=== PATIENT | male | born 1985 | race African-American/Black ===

== ENCOUNTER 2019-04-21 20:41 | Inpatient (IN) | payer OTHER ==
[2019-04-21 21:03] VITALS: BMI 32.1
--- NOTE | 2019-04-21 21:12 | PDOC ---
History of Present Illness - General Chief Complaint: Urinary Problem Stated Complaint: UNABLE TO HAVE URINATION & BM Time Seen by Provider: 04/21/19 21:07 History Source: Patient Exam Limitations: No Limitations - History of Present Illness Initial Comments: Idris Bingham is a 33 yo M w a pmh of epilepsy on keppra who presents to the [facility] er with 1 day of dysuria, frequency, urgency, and hesitancy. The patient states it hurts when he tries to urinate and he feels like he is unable to completely empty his bladder. He also reports constantly feeling like he has an urge to urinate but then when he tries to urinate he is unable to. He feels quite hesitant when trying to urinate. He states he has also not been able to move his bowels for the past 24 hours. He reports that usually he has 2 normal daily bowel movements but has not defecated since yesterday. Patient feels like his bladder is full and that is what is preventing him from having a bowel movement. Patient believes he had a seizure two days ago. PCP: Dr. Rodriguez Neurologist: Dr. Cage PSH: None reported Social Hx: Denies smoking, drinking, or other substance usage Allergies: NKA, NKDA Past History - Past Medical History Allergies/Adverse Reactions: Allergies Allergy/AdvReac Type Severity Reaction Status Date / Time No Known Allergies Allergy Verified 04/21/19 21:03 Home Medications: Ambulatory Orders levETIRAcetam [Keppra -] 500 mg PO BID 04/21/19 - Psycho Social/Smoking Cessation Hx Smoking History: Never smoked Have you smoked in the past 12 months: No Hx Alcohol Use: No Drug/Substance Use Hx: No Review of Systems - Review of Systems Able to Perform ROS?: Yes Comments:: CONSTITUTIONAL: Present: Fever, chills Absent: no fatigue EYES: Absent: visual changes ENT: Absent: ear pain, no sore throat CARDIOVASCULAR: Absent: chest pain, no palpitations RESPIRATORY: Absent: cough, no SOB GI: Present: Abdominal discomfort, constipation Absent: no nausea, no vomiting, no diarrhea GENITOURINARY: Present: dysuria, frequency, hematuria, urgency, hesitancy MUSKULOSKELETAL: Absent: back pain, no arthralgia, no myalgia SKIN: Absent: rash NEURO: Absent: headache *Physical Exam - Vital Signs Last Vital Signs Temp Pulse Resp BP Pulse Ox 100 F H 110 H 18 139/65 98 04/21/19 21:00 04/21/19 21:00 04/21/19 21:04/21/19 21:00 04/21/19 21:00 - Physical Exam Comments: GENERAL: Well-appearing, well-nourished. No apparent distress. HEENT: Normocephalic, atraumatic. PERRL, EOM intact. CARDIOVASCULAR: Tachycardic rate. Normal S1, S2. Regular rhythm. PULMONARY: No evidence of respiratory distress. Lungs clear to auscultation bilaterally. No wheezing, rales or rhonchi. ABDOMEN: Soft, non-distended, non-tender. EXTREMITIES: Normal ROM in all four extremities. No gross deformities. SKIN: Warm, dry. No rash NEUROLOGICAL: No focal neurological deficits. Male Genitalia: positive: normal genitalia, normal prostate, hematuria. negative: discharge, testicular tenderness, testicular mass, epididymus tender, inguinal hernia, hernia, CVAT, other Rectal Exam: positive: normal exam, NL Prostate, normal rectal tone. negative: deferred, melena, decreased tone, heme positive stool, hemorrhoids ED Treatment Course - LABORATORY CBC & Chemistry Diagram: 04/21/19 21:51 04/21/19 21:51 Medical Decision Making - Medical Decision Making Idris Bingham is a 33 yo M w a pmh of epilepsy on [facility] who presents to the [facility] er with 1 day of dysuria, frequency, urgency, and hesitancy. The patient states it hurts when he tries to urinate and he feels like he is unable to completely empty his bladder. He also reports constantly feeling like he has an urge to urinate but then when he tries to urinate he is unable to. He feels quite hesitant when trying to urinate. He states he has also not been able to move his bowels for the past 24 hours. He reports that usually he has 2 normal daily bowel movements but has not defecated since yesterday. Patient feels like his bladder is full and that is what is preventing him from having a bowel movement. Patient believes he had a seizure two days ago. Vital Signs Temp Pulse Resp BP Pulse Ox 100 F H 110 H 18 139/65 98 04/21/19 21:00 04/21/19 21:00 04/21/19 21:00 04/21/19 21:00 04/21/19 21:00 DDx IBNLT: UTI/Pylo, electrolyte/metabolic disturbance, prostatitis, dehydration , GAVIOTA Plan: Labs, Urine, EKG, Bedside bladder + kidney US, IV hydration, rectal temp, anti-pyretic/analgesia, re-assess Labs: Leukocytosis with left shift. Elevated Cr suggestive of GAVIOTA EKG: Sinus tach 101, narrow complexes, normal axis, LVH, no ST elevations or depressions, no abnormal TWI's, no Q waves, QTc 453, [place] 148 Urine: Urine Test Results Urine Color Dk yellow 04/21/19 21:51 Urine Appearance Cloudy 04/21/19 21:51 Urine pH 7.5 (5.0-8.0) 04/21/19 21:51 Ur Specific [place] 1.037 (1.010-1.035) H 04/21/19 21:51 Urine Protein >=1000 (NEGATIVE) 04/21/19 21:51 Urine Glucose (UA) Negative (NEGATIVE) 04/21/19 21:51 Urine Ketones 15 mg/dl (NEGATIVE) 04/21/19 21:51 Urine Blood Moderate (NEGATIVE) 04/21/19 21:51 Urine Nitrite Positive (NEGATIVE) 04/21/19 21:51 Urine Bilirubin Moderate (NEGATIVE) 04/21/19 21:51 Ur Leukocyte Esterase Moderate (NEGATIVE) 04/21/19 21:51 Bedside US: Bladder is normal in appearance and patient is not retaining urine. 35.5 cm3 in bladder. Kidneys appear grossly normal with good blood flow b/l and no hydronephrosis. Re-assessment: Patient is concerned how much it hurts him to urinate. Given that he had a seizure yesterday, has a moderate amount of blood in the urine, has an elevated cr, tachycardic, and borderline febrile we want to admit the patient for IV hydration, Abx, and further observation. Disposition: Admit to med/surg - Signing patient out to Dr. Barlow to complete admission to hospital and give signout to inpatient resident and team Discharge - Discharge Information Problems reviewed: Yes Clinical Impression/Diagnosis: GAVIOTA (acute kidney injury), Seizure, Elevated CK UTI (urinary tract infection) Qualifiers: Urinary tract infection type: acute cystitis Hematuria presence: with hematuria Qualified Code(s): N30.01 - Acute cystitis with hematuria Condition: Fair - Admission Yes - Follow up/Referral Referrals: Faviola Wasserman MD [Primary Care Provider] - - Patient Discharge Instructions - Post Discharge Activity
--- NOTE | 2019-04-21 21:15 | PDOC ---
Attending Attestation - Resident Resident Name: Jonnathan Aguilar - ED Attending Attestation I have performed the following: I have examined & evaluated the patient, The case was reviewed & discussed with the resident, I agree w/resident's findings & plan - HPI HPI: 04/21/19 22:12 Pt comes with tachycardia; he at nothing today due to the fact that he has been unable to move his bowels. He usually gets 2 BMs per day and today he had no BM. He normally eats chicken nuggets and sandwich and banana. No veggies in his diet. Last seizure was yesterday; he has known seizure/epilepsy with 3 seizures per month approx. He is on [address] Cage is his neurologist who check s his levels. 04/21/19 22:16 Denies smoking or drugs. - Physicial Exam PE: 04/21/19 23:49 Pt has a low grade temp. He is warm and tachy in the ER. Abd soft NtND; although for the resident he had siprapubic pain. No flank pain. Lung clear; heart tachy. Ext normal ROM and no edema. - Medical Decision Making 04/21/19 22:09 Pt takes lamictal, keppra, and trilepta. 04/21/19 22:15 Pt's urine is dark; possibly rhabdomyolysis due to seizures. Pt states that he has been trying to lose weight and he has done so recently. 04/21/19 22:24 Pt has a UTI and will be treated with rocephin here. 04/21/19 22:39 04/21/19 22:52 Pt will be admitted for a nitrite positive UTI; rhabdo, dehydration and need to hydrate and treat so that he doesn't suffer a seizure as an outpatient. 04/21/19 23:49 04/22/19 01:37 Pt is admitted; he had a seizure; he was treated with ativan and given a dose of ofirmev. Heart Score/ECG Review - ECG Intrepretation Rhythm: Regular Rhythm - [place]: Normal - P and [place] Prominent R with upright T in V1 (true posterior AR): No Delta Wave(s) Present: No WPW: No - QRS Poor R Wave Progression: No Q Wave Present: No - ST and T Early Repolarization: No Non Specific ST-T Wave changes: No Flattened T Waves: No Prolonged Q-T Interval: No - ECG Impressions Normal ECG: Yes Non-specific ST Elevation: No Ischemic Changes: No Bradycardia: No Tachycardia: Sinus (raet 101; improving with hydration and abx)
[2019-04-21] MEDS ORDERED: SODIUM CHLORIDE 0.9% 500 ML INFUS.BAG IV ONE (21:34)
[2019-04-21 22:02] LABS: BASO % 0.3 % (0-2.0); HEMATOCRIT 41.7 % (35.4-49); HEMOGLOBIN 14.5 GM/dL (11.7-16.9); LYMPH % 6.6 % (8-40); MCH 31.2 pg (25.7-33.7); MCHC 34.7 g/dl (32.0-35.9); MEAN CELL VOLUME 89.8 fl (80-96); MEAN PLT VOLUME 8.1 fl (7.5-11.1); MONO % 8.4 % (3.8-10.2); NEUT % 84.7 % (42.8-82.8); PLATELET COUNT 232 K/MM3 (134-434); RBC 4.64 M/mm3 (4.00-5.60); RDW 12.4 % (11.9-15.9); WHITE BLOOD COUNT 27.6 K/mm3 (4.0-10.0)
[2019-04-21] MEDS ORDERED: ACETAMINOPHEN 325 MG TABLET (FP) PO ONE (22:17)
[2019-04-21 22:19] LABS: EPI CELLS 0.1 /HPF (0-5/HPF); HYALINE CASTS 260 /lpf (0-8); PH,URINE 7.5 (5.0-8.0); URINE APPEARANCE Cloudy; URINE BACTERIA 9.3 /hpf (NEGATIVE); URINE BILIRUBIN Moderate (NEGATIVE); URINE COLOR DK YELLOW; URINE GLUCOSE (UA) Negative (NEGATIVE); URINE KETONE 15 mg/dl (NEGATIVE); URINE LEUK ESTERASE Moderate (NEGATIVE); URINE NITRITE Positive (NEGATIVE); URINE PROTEIN >=1000 (NEGATIVE); URINE WBC 177 /hpf (0-5)
[2019-04-21] MEDS ORDERED: CEFTRIAXONE 1,000 MG in DEXTROSE 5%-WATER - 50 ML IVPB ONE (22:21)
[2019-04-21] MEDS ORDERED: ACETAMINOPHEN 325 MG TABLET (FP) ONE (22:25)
[2019-04-21] MEDS ORDERED: CEFTRIAXONE 1 GM/50 ML BAG ONE (22:26)
[2019-04-21 22:27] LABS: URINE RBC 35-40 /hpf (0-4); YEAST NEGATIVE (NEGATIVE)
[2019-04-21 22:33] LABS: PLATELET ESTIMATE ADEQUATE
[2019-04-21 22:49] LABS: ALBUMIN 4.3 g/dl (3.4-5.0); ALK PHOS 94 U/L (45-117); ANION GAP 8 MMOL/L (8-16); BLOOD UREA NITROGEN 12.7 mg/dL (7-18); CALCIUM 9.6 mg/dL (8.5-10.1); CHLORIDE 100 mmol/L (98-107); CO2 28 mmol/L (21-32); CREATININE 1.5 mg/dL (0.55-1.3); GLUCOSE,RANDOM 87 mg/dL (74-106); POTASSIUM 3.6 mmol/L (3.5-5.1); SGOT/AST 32 U/L (15-37); SGPT/ALT 33 U/L (13-61); SODIUM 136 mmol/L (136-145); TOT PROT 8.5 g/dl (6.4-8.2)
[2019-04-21] MEDS ORDERED: OXcarbazepine 300 MG/5 ML 250 ML BULK BOTTLE PO ONE (23:12)
[2019-04-21] MEDS ORDERED: levETIRAcetam 500 MG TABLET (FP) PO ONE (23:12)
[2019-04-22] MEDS ORDERED: LORazepam 2 MG/ML SDV VIAL ONE (01:30)
[2019-04-22] MEDS ORDERED: ACETAMINOPHEN 1000 MG/100 ML VIAL (NON FORMULARY) IVPB ONE (01:34)
[2019-04-22] MEDS ORDERED: ACETAMINOPHEN INJECTION 100 ML IVPB ONE (01:34)
[2019-04-22] MEDS ORDERED: SODIUM CHLORIDE 0.9% 500 ML INFUS.BAG IV ONE (01:38)
--- NOTE | 2019-04-22 01:47 | PDOC ---
*Physical Exam - Vital Signs Last Vital Signs Temp Pulse Resp BP Pulse Ox 100 F H 110 H 18 139/65 98 04/21/19 21:00 04/21/19 21:00 04/21/19 21:00 04/21/19 21:00 04/21/19 21:00 ED Treatment Course - LABORATORY CBC & Chemistry Diagram: 04/21/19 21:51 04/21/19 21:51 - ADDITIONAL ORDERS Additional order review: Laboratory Results 04/21/19 04/21/19 21:51 21:51 Sodium 136 Potassium 3.6 Chloride 100 Carbon Dioxide 28 Anion Gap 8 BUN 12.7 Creatinine 1.5 H Est GFR (CKD-EPI)AfAm 69.89 Est GFR (CKD-EPI)NonAf 60.30 Random Glucose 87 Calcium 9.6 Total Bilirubin 2.0 H AST 32 ALT 33 Alkaline Phosphatase 94 Creatine Kinase 787 H Creatine Kinase Index No Result Required. CK-MB (CK-2) < 1.0 Total Protein 8.5 H Albumin 4.3 Urine Color Dk yellow Urine Appearance Cloudy Urine pH 7.5 Ur Specific [place] 1.037 H Urine Protein >=1000 Urine Glucose (UA) Negative Urine Ketones 15 mg/dl Urine Blood Moderate Urine Nitrite Positive Urine Bilirubin Moderate Urine Urobilinogen 2.0 Ur Leukocyte Esterase Moderate Urine WBC (Auto) 177 Urine RBC (Auto) 35-40 Urine Casts (Auto) 260 U Pathogenic Cast Auto Negative U Epithel Cells (Auto) 0.1 Urine Bacteria (Auto) 9.3 Urine Yeast (Auto) Negative 04/21/19 21:51 RBC 4.64 MCV 89.8 MCHC 34.7 RDW 12.4 MPV 8.1 Neutrophils % 84.7 H Lymphocytes % 6.6 L Monocytes % 8.4 Eosinophils % 0.0 Basophils % 0.3 - Medications Given in the ED: ED Medications Discontinued Medications Generic Name Dose Route Start Last Admin Trade Name Freq PRN Reason Stop Dose Admin Acetaminophen 975 mg 04/21/19 22:17 04/21/19 22:33 Tylenol - PO 04/21/19 22:18 975 mg ONCE ONE Administration Acetaminophen 1,000 mg 04/22/19 01:34 04/22/19 01:39 Ofirmev Injection - IVPB 04/22/19 01:35 1,000 mg ONCE ONE Administration Ceftriaxone Sodium 1,000 mg/ 50 mls @ 100 mls/hr 04/21/19 22:21 04/21/19 22: 33 Dextrose IVPB 04/21/19 22:50 100 mls/hr ONCE ONE Administration Lamotrigine 200 mg 04/21/19 23:12 04/22/19 01:43 Lamictal - PO 04/21/19 23:13 200 mg ONCE ONE Administration Levetiracetam 500 mg 04/21/19 23:12 04/22/19 01:43 Keppra - PO 04/21/19 23:13 500 mg ONCE ONE Administration Sodium Chloride 1,000 ml 04/21/19 21:34 04/21/19 22:22 Normal Saline - IV 04/21/19 21:35 1,000 ml ONCE ONE Administration Medical Decision Making - Medical Decision Making 04/22/19 01:[address] Aguilar. Patient is a 33 yo male w/ pmh of epilepsy on keppra who presents w/ concerns of dysuria, frequency, urgency, and hesitancy. Patient noted upon workup to have UTI, grossly elevated WBC count, and concern for dehydration w/ elevated CK. Patient admitted for ABX and hydration. Noted to be seizing upon repeat evaluation. Patient seizure stopped w/ 2mg ativan. Patient admitted for further evaluation to hospital team. Discharge - Discharge Information Problems reviewed: Yes Clinical Impression/Diagnosis: GAVIOTA (acute kidney injury), Seizure, Elevated CK UTI (urinary tract infection) Qualifiers: Urinary tract infection type: acute cystitis Hematuria presence: with hematuria Qualified Code(s): N30.01 - Acute cystitis with hematuria Condition: Fair - Admission Yes - Follow up/Referral - Patient Discharge Instructions - Post Discharge Activity
--- NOTE | 2019-04-22 01:57 | PN ---
Teaching Attending Note Name of Resident: Lalo Mosley ATTENDING PHYSICIAN STATEMENT I saw and evaluated the patient. I reviewed the resident's note and discussed the case with the resident. I agree with the resident's findings and plan as documented. SUBJECTIVE: Patient is a 33 year old man with PMH of Epilepsy on Keppra who presents to the ER with 1 day of dysuria, frequency, urgency, and hesitancy. The patient states it hurts when he tries to urinate and he feels like he is unable to completely empty his bladder. He also reports constantly feeling like he has an urge to urinate but then when he tries to urinate he is unable to. He feels quite hesitant when trying to urinate. He states he has also not been able to move his bowels for the past 24 hours. He reports that usually he has 2 normal daily bowel movements but has not defecated since yesterday. Patient feels like his bladder is full and that is what is preventing him from having a bowel movement. Patient believes he had a seizure two days ago and had a witnessed seizure in the ER. Denies smoking, alcohol abuse or illicit drug use. OBJECTIVE: Somnolent but arousable - post ictal Vital Signs Period Temp Pulse Resp BP Sys/Paredes Pulse Ox Last 24 Hr 100 F 110 18 139/65 98 HEENT: No Jaundice, eye redness or discharge, PERRLA, EOMI. Normocephalic, atraumatic. External ears are normal and hearing is grossly intact. No nasal discharge. Neck: Supple, nontender. No palpable adenopathy or thyromegaly. No JVD Chest: Good effort. Clear to auscultation and percussion. Heart: Regular. No S3, rub or murmur Abdomen: Not distended, soft, nontender and no HSM. No rebound or guarding. Normal bowel sounds. Ext: Peripheral pulses intact. No leg edema. Skin: Warm and dry. No petechiae, rash or ecchymosis. Neuro: Alert. Oriented x3. CN 2-12 grossly intact. Sensation grossly intact in all four extremities and DTR are symmetric. Psych: Appropriate mood and affect. Good insight. Home Medications Medication Instructions Recorded levETIRAcetam [Keppra -] 500 mg PO BID 04/21/19 Abnormal Lab Results 04/21/19 04/21/1919 21:51 21:51 21:51 WBC 27.6 H Absolute Neuts (auto) 23.3 H Neutrophils % 84.7 H Lymphocytes % 6.6 L Creatinine 1.5 H Total Bilirubin 2.0 H Creatine Kinase 787 H Total Protein 8.5 H Ur Specific [place] 1.037 H ASSESSMENT AND PLAN: 1. Sepsis due to UTI - Being treated with IV Rocephin and IV fluids. Will send blood culture and lactic acid level. Elevated bilirubin is unexplained - will trend and get RUQ sonogram. EKG shows sinus tachycardia but no ST-T wave changes. 2. Breakthrough seizure - Patient professes compliance with his anti-seizure medications. Will check keppra level and get historical drug levels from his PCP /neurologist and get EEG. Will load with Keppra 1 gm IV. Based on his weight, 500 mg bid may be suboptimal for him. Consult neurology. 3. GAVIOTA - Likely due to rhabdomyolysis which may also explain proteinuria and hematuria (?haptoglobin). Will hydrate with IV NS, trend CKP and consult nephrology. Avoid nephrotoxic agents such as NSAIDS, aminoglycosides, contrast dyes and certain Alternative medicine products. Repeat urinalysis tomorrow. 4. Obesity Counseled on the risks associated with obesity. Will provide patient all the necessary assistance, counseling and positive reinforcement to facilitate weight loss. Consult transition advisor. 5. DVT prophylaxis - Lovenox 40 mg SQ q 24 hours. 6. Advance directives - Full code
--- NOTE | 2019-04-22 02:17 | HP ---
CHIEF COMPLAINT: Dysuria, frequency, increased urge and inability to urinate PCP: Dr. Rodriguez HISTORY OF PRESENT ILLNESS: Pt. is a 33 y.o. M w/ PMHx. of Epilepsy presents to the ED for signs and symptoms of UTI over the last day. Pt. states that the symptoms started suddenly. Pt. states that he has not had a bowel movement in 1 day but that he usually goes twice a day. Pt. endorses dysuria, as well as increased frequency and urge to urinate. Pt. states that he has a seizure earlier today for a total of 4 seizures this month at home. Pt. states that he regularly has around 3 break through seizures a month and lives with muslim friends ( one of which also has seizure disorder) in order to receive help for his break through seizures. Pt. states that his seizure today was unwitnessed and that he was unaware of how long or what happened. Pt. follow Neurologist Dr. Cage and sees him every 3 months( last in January). Pt. denied any recent adjustments to his medications. During H&P pt. had a tonic seizure (5th seizure this month) lasting ~4-5 minutes that was ?broken with Ativan 2mg. Unclear if Pt. was resolving seizure on his own by the time Ativan was given and Pt. was still very confused but a little less rigid. Pt. prior to seizure was saturating in mid-high 90s. Pt. following seizure was saturating to mid-high 80s. ER course was notable for: (1)EKG, UA/UCx, Ceftriaxone (2)Ofirmev, Ativan 2 mg (3) Recent Travel: No PAST MEDICAL HISTORY: Epilepsy PAST SURGICAL HISTORY: Denies Social History: Smoking: Denies Alcohol: Denies Drugs: Denies Allergies No Known Allergies Allergy (Verified 04/21/19 21:03) HOME MEDICATIONS: Home Medications Medication Instructions Recorded levETIRAcetam [Keppra -] 500 mg PO BID 04/21/19 REVIEW OF SYSTEMS CONSTITUTIONAL: diaphoresis Absent: fever, chills, generalized weakness, malaise, loss of appetite, weight change HEENT: Absent: rhinorrhea, nasal congestion, throat pain, throat swelling, difficulty swallowing, mouth swelling, ear pain, eye pain, visual changes CARDIOVASCULAR: Absent: chest pain, syncope, palpitations, irregular heart rate, lightheadedness , peripheral edema RESPIRATORY: Absent: cough, shortness of breath, dyspnea with exertion, orthopnea, wheezing, stridor, hemoptysis GASTROINTESTINAL: Absent: abdominal pain, abdominal distension, nausea, vomiting, diarrhea, constipation, melena, hematochezia GENITOURINARY: dysuria, frequency, urgency, hesitancy Absent: hematuria, flank pain, genital pain MUSCULOSKELETAL: Absent: myalgia, arthralgia, joint swelling, back pain, neck pain SKIN: Absent: rash, itching, pallor HEMATOLOGIC/IMMUNOLOGIC: Absent: easy bleeding, easy bruising, lymphadenopathy, frequent infections ENDOCRINE: Absent: unexplained weight gain, unexplained weight loss, heat intolerance, cold intolerance NEUROLOGIC: Absent: headache, focal weakness or paresthesias, dizziness, unsteady gait, seizure, mental status changes, bladder or bowel incontinence PSYCHIATRIC: Absent: anxiety, depression, suicidal or homicidal ideation, hallucinations. PHYSICAL EXAMINATION Vital Signs - 24 hr 04/21/19 21:00 Temperature 100 F H Pulse Rate 110 H Respiratory 18 Rate Blood Pressure 139/65 O2 Sat by Pulse 98 Oximetry (%) GENERAL: Awake, alert, and fully oriented, in mod distress. HEAD: Normal with no signs of trauma. EYES: Pupils equal, round and reactive to light, extraocular movements intact, sclera anicteric, conjunctiva clear. No lid lag. EARS, NOSE, THROAT: Ears normal, nares patent, oropharynx clear without exudates. Moist mucous membranes. NECK: Normal range of motion, supple without lymphadenopathy, JVD, or masses. LUNGS: Breath sounds equal, clear to auscultation bilaterally. No wheezes, and no crackles. No accessory muscle use. HEART: Regular rate and rhythm, normal S1 and S2 without murmur, rub or gallop. ABDOMEN: Soft, nontender, not distended, normoactive bowel sounds, no guarding, no rebound MUSCULOSKELETAL: No CVA tenderness. UPPER EXTREMITIES: 2+ radial pulses, warm, well-perfused. No cyanosis. No clubbing. No peripheral edema. LOWER EXTREMITIES: 2+ dorsal pedal pulses, warm, well-perfused. No calf tenderness. No peripheral edema. NEUROLOGICAL: Anxious. slightly abnormal thought process, mild cognitive deficits? PSYCHIATRIC: Cooperative. Prolonged eye contact. SKIN: Diaphoretic Laboratory Results - last 24 hr 04/21/19 04/21/19 04/21/19 21:51 21:51 21:51 WBC 27.6 H RBC 4.64 Hgb 14.5 Hct 41.7 MCV 89.8 MCH 31.2 MCHC 34.7 RDW 12.4 Plt Count 232 MPV 8.1 Absolute Neuts (auto) 23.3 H Neutrophils % 84.7 H Neutrophils % (Manual) 82.0 Lymphocytes % 6.6 L Lymphocytes % (Manual) 13.0 Monocytes % 8.4 Monocytes % (Manual) 5 Eosinophils % 0.0 Basophils % 0.3 Nucleated RBC % 0 Platelet Estimate Adequate Sodium 136 Potassium 3.6 Chloride 100 Carbon Dioxide 28 Anion Gap 8 BUN 12.7 Creatinine 1.5 H Est GFR (CKD-EPI)AfAm 69.89 Est GFR (CKD-EPI)NonAf 60.30 Random Glucose 87 Calcium 9.6 Total Bilirubin 2.0 H AST 32 ALT 33 Alkaline Phosphatase 94 Creatine Kinase 787 H Creatine Kinase Index No Result Required. CK-MB (CK-2) < 1.0 Total Protein 8.5 H Albumin 4.3 Urine Color Dk yellow Urine Appearance Cloudy Urine pH 7.5 Ur Specific [place] 1.037 H Urine Protein >=1000 Urine Glucose (UA) Negative Urine Ketones 15 mg/dl Urine Blood Moderate Urine Nitrite Positive Urine Bilirubin Moderate Urine Urobilinogen 2.0 Ur Leukocyte Esterase Moderate Urine WBC (Auto) 177 Urine RBC (Auto) 35-40 Urine Casts (Auto) 260 U Pathogenic Cast Auto Negative U Epithel Cells (Auto) 0.1 Urine Bacteria (Auto) 9.3 Urine Yeast (Auto) Negative ASSESSMENT/PLAN: Pt. is a 33 y.o. M w/ PMHx. of Epilepsy presents for signs and symptoms of UTI over the last day. #UTI UA +: Nitrite +, LE+, WBC-177, Bilirubin, blood, and protein WBC: 26k, Temp: 100, tachycardic Bladder and Renal US: no post void residual, not retaining, no hydronephrosis, kidneys have normal size blood flow. f/u Bcx. ( Pt. received 1 dose ofCeftriaxone prior to BCx.) c/w Ceftriaxone pending speciation and sensitivities f/u Lactic Acid #Seizure disorder f/u anti-epileptic levels c/w AEDs f/u EEG Neuro (Dr. Brothers) consulted [facility] 2 seizures likely precipitated by the UTI EKG: QTc: 453, tachycardia Ativan 2mg PRN #GAVIOTA Cr: 1.5 unknown baseline, f/u Dr. Rodriguez for baseline Dark colored urine Renal US as above #DVT Ppx. Hep SQ TID #FEN no standing IVF, encorage PO intake monitor lytes, replete as needed Na restricted diet Visit type - Emergency Visit Emergency Visit: Yes ED Registration Date: 04/21/19 Care time: The patient presented to the Emergency Department on the above date and was hospitalized for further evaluation of their emergent condition. - New Patient This patient is new to me today: Yes Date on this admission: 04/21/19 - Critical Care Critical Care patient: No ATTENDING PHYSICIAN STATEMENT I saw and evaluated the patient. I reviewed the resident's note and discussed the case with the resident. I agree with the resident's findings and plan as documented. SUBJECTIVE: OBJECTIVE: ASSESSMENT AND PLAN:
[2019-04-22] MEDS ORDERED: levETIRAcetam 500 MG/5 ML INJECTION VIAL IVPB ONE ×2 (04:42→05:25)
--- NOTE | 2019-04-22 10:15 | HOSP ---
Subjective - Review of Symptoms Events since last encounter: Patient is feeling better with no acute distress , no further urgency or frequency. No fever at this time Vital Signs Temperature 99.4 F 04/22/19 06:26 Pulse Rate 104 H 04/22/19 06:26 Respiratory Rate 18 04/22/19 06:26 Blood Pressure 145/93 04/22/19 06:26 O2 Sat by Pulse Oximetry (%) 98 04/22/19 06:26 GENERAL: The patient is awake, alert, and fully oriented, in no acute distress. HEAD: Normal with no signs of trauma. EYES: PERRL, extraocular movements intact, sclera anicteric, conjunctiva clear. ENT: Ears normal, oropharynx clear without exudates, moist mucous membranes. NECK: Trachea midline, full range of motion, supple. LUNGS: Breath sounds equal, clear to auscultation bilaterally, no wheezes, no crackles, no accessory muscle use. HEART: Regular rate and rhythm, S1, S2 without murmur, rub or gallop. ABDOMEN: Soft, nontender, nondistended, normoactive bowel sounds, no guarding, no rebound, no hepatosplenomegaly, no masses. EXTREMITIES: 2+ pulses, warm, well-perfused, no edema. NEUROLOGICAL: Cranial nerves II through XII grossly intact. Normal speech, gait not observed. PSYCH: Normal mood, normal affect. SKIN: Warm, dry, normal turgor, no rashes or lesions noted WBC 27.6 K/mm3 (4.0-10.0) H 04/21/19 21:51 RBC 4.64 M/mm3 (4.00-5.60) 04/21/19 21:51 Hgb 14.5 GM/dL (11.7-16.9) 04/21/19 21:51 Hct 41.7 % (35.4-49) 04/21/19 21:51 MCV 89.8 fl (80-96) 04/21/19 21:51 MCHC 34.7 g/dl (32.0-35.9) 04/21/19 21:51 RDW 12.4 % (11.9-15.9) 04/21/19 21:51 Plt Count 232 K/MM3 (134-434) 04/21/19 21:51 MPV 8.1 fl (7.5-11.1) 04/21/19 21:51 CMP Sodium 136 mmol/L (136-145) 04/21/19 21:51 Potassium 3.6 mmol/L (3.5-5.1) 04/21/19 21:51 Chloride 100 mmol/L (98-107) 04/21/19 21:51 Carbon Dioxide 28 mmol/L (21-32) 04/21/19 21:51 Anion Gap 8 MMOL/L (8-16) 04/21/19 21:51 BUN 12.7 mg/dL (7-18) 04/21/19 21:51 Creatinine 1.5 mg/dL (0.55-1.3) H 04/21/19 21:51 Random Glucose 87 mg/dL (74-106) 04/21/19 21:51 Calcium 9.6 mg/dL (8.5-10.1) 04/21/19 21:51 Total Bilirubin 2.0 mg/dL (0.2-1) H 04/21/19 21:51 AST 32 U/L (15-37) 04/21/19 21:51 ALT 33 U/L (13-61) 04/21/19 21:51 Alkaline Phosphatase 94 U/L (45-117) 04/21/19 21:51 Total Protein 8.5 g/dl (6.4-8.2) H 04/21/19 21:51 Albumin 4.3 g/dl (3.4-5.0) 04/21/19 21:51 CARDIAC ENZYMES Creatine Kinase 787 U/L (26-308) H 04/21/19 21:51 Current Medications Generic Name Dose Route Start Last Admin Trade Name Freq PRN Reason Stop Dose Admin Ceftriaxone Sodium 2 gm/ 50 mls @ 100 mls/hr 04/22/19 10:00 Dextrose IVPB DAILY [facility] Home Medications Medication Instructions Recorded levETIRAcetam [Keppra -] 500 mg PO BID 04/21/19 EKG shows sinus tachycardia but no ST-T wave changes Assessment and plan: Pt. is a 33 y.o. Male w/ PMHx. of Epilepsy presents to the ED for having urgency and frequency and is found to have UTI and and was admitted for having a seizure earlier today for a total of 4 seizures this month at home. #Sepsis due to uti, cX IS PENDING, BLOOD CX PENDING on Rocephin 2gm IV , ID consult, will get GC/chlamydia #s/p Seizure - Consult neurology, Current doses [id number] bid, Lamictal 200mg am and 300 at night, Keppra 1000mg BiD-would resume current dose, discussed with Dr. Brothers # GAVIOTA - monitor, IVF continue # Constipation: on miralax # Obesity weight management DVT prophylaxis - Lovenox 40 mg SQ q 24 hours. Advance directives - Full code Physical Examination Vital Signs: Vital Signs Temperature 99.4 F 04/22/19 06:26 Pulse Rate 104 H 04/22/19 06:26 Respiratory Rate 18 04/22/19 06:26 Blood Pressure 145/93 04/22/19 06:26 O2 Sat by Pulse Oximetry (%) 98 04/22/19 06:26 Labs: CBC, BMP 04/21/19 21:51 04/21/19 21:51
[2019-04-22] MEDS ORDERED: DEXTROSE 5%-WATER - 50 ML IVPB ONE (10:25)
[2019-04-22] MEDS: CEFTRIAXONE 2 GM in DEXTROSE 5%-WATER - 50 ML IVPB SCH (10:27)
[2019-04-22] MEDS ORDERED: SODIUM CHLORIDE 0.9%/KCL 20 MEQ/1,000 ML INFUS.BAG IV SCH (10:30)
[2019-04-22] MEDS: POLYETHYLENE GLYCOL 3350 119 GM BTL PO SCH ×2 (12:47→21:28)
[2019-04-22] MEDS: ACETAMINOPHEN 325 MG TABLET (FP) PO PRN ×2 (14:46→23:37)
--- NOTE | 2019-04-22 15:51 | PN ---
Progress Note (short form) - Note Progress Note: ID CONSULT DICTATED UTI R/O SEPSIS SECONDARY TO UTI LEUKOCYTOSIS SEIZURE DISORDER AWAIT C/S CONTINUE EMPIRIC CEFTRIAXONE
--- NOTE | 2019-04-22 16:34 | CON.NEURO ---
Consult Consult Specialty:: NEUROLOGY-NENA GONZALEZ - History of Present Illness History of Present Illness: HISTORY OF PRESENT ILLNESS: Pt. is a 33 y.o. M w/ PMHx. of Epilepsy presents to the ED for signs and symptoms of UTI over the last day. Pt. states that the symptoms started suddenly. Pt. states that he has not had a bowel movement in 1 day but that he usually goes twice a day. Pt. endorses dysuria, as well as increased frequency and urge to urinate. Pt. states that he has a seizure earlier today for a total of 4 seizures this month at home. Pt. states that he regularly has around 3 break through seizures a month and lives with restorationism friends ( one of which also has seizure disorder) in order to receive help for his break through seizures. Pt. states that his seizure today was unwitnessed and that he was unaware of how long or what happened. Pt. follow Neurologist Dr. Cage and sees him every 3 months( last in January). Pt. denied any recent adjustments to his medications. During H&P pt. had a tonic seizure (5th seizure this month) lasting ~4-5 minutes that was ?broken with Ativan 2mg. Unclear if Pt. was resolving seizure on his own by the time Ativan was given and Pt. was still very confused but a little less rigid. Pt. prior to seizure was saturating in mid-high 90s. Pt. following seizure was saturating to mid-high 80s. Reports he feels well, that he uas 3sz/month, this month 4 than one inhouse. Denies all neurologic complaints. Home Meds- Oxcarb-150mg bid, Lamictal 200mg am and 300 at night, Keppra 1000mg BiD(confirmed by Dr. Doyle). Pt. was given one dose of Keppra iv in the ER , ?? one dose each of other AEDs. - Alcohol/Substance Use Hx Alcohol Use: No - Smoking History Smoking history: Never smoked Have you smoked in the past 12 months: No Home Medications - Allergies Allergies/Adverse Reactions: Allergies Allergy/AdvReac Type Severity Reaction Status Date / Time No Known Allergies Allergy Verified 04/21/19 21:03 - Home Medications Home Medications: Ambulatory Orders levETIRAcetam [Keppra -] 500 mg PO BID 04/21/19 Physical Exam-Neuro Vital Signs: Vital Signs Temperature 101.5 F H 04/22/19 14:00 Pulse Rate 108 H 04/22/19 14:00 Respiratory Rate 18 04/22/19 14:00 Blood Pressure 123/68 04/22/19 14:00 O2 Sat by Pulse Oximetry (%) 98 04/22/19 06:26 Labs: CBC, BMP 04/21/19 21:51 04/21/19 21:51 - Neuro Exam DTR's: 2+ Left Bicep, 2+ Right Bicep, 2+ Left Tricep, 2+ Right Tricep, 2+ Left Brachioradialis, 2+ Right Brachioradialis, 2+ Left Achilles, 2+ Right Achilles Motor Strength: 5/5: Left Arm, Right Arm, Left Leg, Right Leg Gait: Normal Assessment/Plan Pt. with sz. d/o, has been compliant with ,meds, he tells me his epileptologist is in process of titrating meds up. Current doses [id number] bid, Lamictal 200mg am and 300 at night, Keppra 1000mg BiD-would resume all at current doses.
--- NOTE | 2019-04-22 18:24 | CONS ---
DATE OF CONSULTATION: 04/22/2019 HISTORY OF PRESENT ILLNESS: The patient is a 33-year-old male with a history of seizure disorder, evaluated for leukocytosis. The patient was admitted to the hospital on April 21, 2019 with a one-day history of urinary tract complaints. He reported dysuria, urinary frequency and urgency, and acute urinary retention. In addition, he complained of constipation for 24 hours prior to admission. He was evaluated in the emergency room, where he was noted to have a markedly elevated white blood cell count. He was tachycardic. His course was complicated by seizure activity. A urinalysis showed many white cells. A urine culture is pending. He was treated empirically with ceftriaxone. The patient offers no history of urinary tract infections. He denies any associated fever or chills. PAST MEDICAL HISTORY: Positive for seizure disorder. ALLERGIES: No known drug allergies. MEDICATIONS: Tylenol, ceftriaxone, Lamictal, Keppra. SOCIAL HISTORY: He resides in the community. He is a nonsmoker, nondrinker. REVIEW OF SYSTEMS: Neurologic: Positive for seizure disorder. Cardiac: Negative for chest pain or palpitations. Respiratory: Negative for cough or sputum production. Gastrointestinal: Negative for vomiting or diarrhea. Genitourinary: Positive for urinary tract infection. LABORATORY DATA: White count 27.6, 84 neutrophils, 13 lymphocytes, 8 monocytes. Hematocrit 41.7, platelet count 223,000, creatinine 1.5. Urinalysis showed 177 white cells. Blood and urine cultures are pending. PHYSICAL EXAMINATION: General: He is awake and alert. He does not appear to be acutely toxic. Vital Signs: Temperature 99.4. T-max is 101.5. Pulse 104 and regular, blood pressure 145/93, respiratory rate 18 per minute. HEENT: Sclerae anicteric. Heart sounds S1, S2. Lungs: Clear. Abdomen: Soft. No suprapubic or flank tenderness. Extremities: Negative for edema. IMPRESSION: 1. Urinary tract infection; rule out sepsis secondary to urinary tract infection. 2. Leukocytosis. 3. Seizure disorder. PLAN: 1. Await sepsis workup. 2. Continue empiric antibiotic coverage with ceftriaxone pending cultures. 3. Neurology evaluation. 4. Will follow. Thank you for the kind referral. MAYCOL CRAWFORD M.D. [id number]
[2019-04-22] MEDS: levETIRAcetam 500 MG/5 ML ORAL SOLUTION (UNIT-DOSE CUPS) PO SCH (21:26)
[2019-04-22] MEDS: OXcarbazepine 150 MG TABLET (UD) PO SCH (21:28)
[2019-04-22] MEDS ORDERED: ACETAMINOPHEN 325 MG TABLET (FP) PO ONE (23:38)
[2019-04-23 08:12] LABS: BASO % 0.4 % (0-2.0); EOS % 0.8 % (0-4.5); HEMATOCRIT 40.6 % (35.4-49); HEMOGLOBIN 13.6 GM/dL (11.7-16.9); LYMPH % 8.1 % (8-40); MCH 30.2 pg (25.7-33.7); MCHC 33.6 g/dl (32.0-35.9); MEAN CELL VOLUME 89.8 fl (80-96); MEAN PLT VOLUME 8.4 fl (7.5-11.1); MONO % 7.8 % (3.8-10.2); NEUT % 82.9 % (42.8-82.8); PLATELET COUNT 215 K/MM3 (134-434); RBC 4.52 M/mm3 (4.00-5.60); RDW 12.5 % (11.9-15.9); WHITE BLOOD COUNT 16.7 K/mm3 (4.0-10.0)
[2019-04-23 08:42] LABS: ALBUMIN 3.5 g/dl (3.4-5.0); BILIRUBIN,TOTAL 1.2 mg/dL (0.2-1); BLOOD UREA NITROGEN 9.7 mg/dL (7-18); CALCIUM 8.8 mg/dL (8.5-10.1); MAGNESIUM 2.3 mg/dL (1.8-2.4); PHOSPHOROUS 3.1 mg/dL (2.5-4.9); TOT PROT 7.5 g/dl (6.4-8.2)
[2019-04-23] MEDS ORDERED: PT OWN MED DRAWER 7, Y5N ONE ×2 (10:05→21:57)
[2019-04-23] MEDS ORDERED: DEXTROSE 5%-WATER - 50 ML IVPB ONE (10:05)
[2019-04-23] MEDS: CEFTRIAXONE 2 GM in DEXTROSE 5%-WATER - 50 ML IVPB SCH (10:28)
[2019-04-23] MEDS: levETIRAcetam 500 MG/5 ML ORAL SOLUTION (UNIT-DOSE CUPS) PO SCH ×2 (10:28→22:03)
[2019-04-23] MEDS: lamoTRIgine 100 MG TABLET (FP) PO SCH (10:29)
[2019-04-23] MEDS: OXcarbazepine 150 MG TABLET (UD) PO SCH ×2 (10:29→22:05)
[2019-04-23] MEDS: POLYETHYLENE GLYCOL 3350 119 GM BTL PO SCH ×2 (10:29→22:06)
[2019-04-23] MEDS: ACETAMINOPHEN 325 MG TABLET (FP) PO PRN ×2 (10:36→22:03)
[2019-04-23] MEDS ORDERED: WITCH HAZEL 50% (TUCKS) 40 PAD/JAR PAD TP PRN (12:20)
--- NOTE | 2019-04-23 13:31 | PN ---
Progress Note, Physician History of Present Illness: REMAINS FEBRILE DENIES DYSURIA WBC IMPROVED BC (-) URINE C/S NLF - Current Medication List Current Medications: Active Medications Acetaminophen (Tylenol -) 975 mg PO Q6H PRN PRN Reason: FEVER Last Admin: 04/23/19 10:36 Dose: 975 mg Ceftriaxone Sodium 2 gm/ (Dextrose) 50 mls @ 100 mls/hr IVPB DAILY [facility] Last Admin: 04/23/19 10:28 Dose: 100 mls/hr Lamotrigine (Lamictal -) 200 mg PO DAILY [facility] Last Admin: 04/23/19 10:29 Dose: 200 mg Levetiracetam (Keppra Oral Solution -) 1,000 mg PO BID [facility] Last Admin: 04/23/19 10:28 Dose: 1,000 mg Oxcarbazepine (Trileptal -) 150 mg PO BID [facility] Last Admin: 04/23/19 10:29 Dose: 150 mg Polyethylene Glycol (Miralax (For Daily Use) -) 17 gm PO BID [facility] Last Admin: 04/23/19 10:29 Dose: 17 gm Witch Tiffanie/Glycerin (Tucks Pads -) 1 pad TP PRN PRN PRN Reason: PAIN - Objective Vital Signs: Vital Signs Temperature 101.0 F H 04/23/19 10:27 Pulse Rate 110 H 04/23/19 10:27 Respiratory Rate 18 04/23/19 10:27 Blood Pressure 134/78 04/23/19 10:27 O2 Sat by Pulse Oximetry (%) 99 04/22/19 21:00 Constitutional: Yes: No Distress Cardiovascular: Yes: Regular Rate and Rhythm, S1, S2 Respiratory: Yes: CTA Bilaterally Gastrointestinal: Yes: Normal Bowel Sounds, Soft. No: Tenderness Edema: No Labs: CBC, BMP 04/23/19 07:00 04/23/19 07:00 Assessment/Plan UTI FEVER/ LEUKOCYTOSIS R/O SEPSIS AZOTEMIA IMPROVED AWAIT C/S CONTINUE CEFTRIAXONE RENAL SONOGRAM
--- NOTE | 2019-04-23 14:13 | PN ---
Physical Exam: SUBJECTIVE: Patient seen and examined. Fully awake in no apparent distress . Pt had temp of 102.3 responsive to tylenol. no seizures overnight. Pt continues to experience burning on urination as well as urgency OBJECTIVE: Vital Signs Period Temp Pulse Resp BP Sys/Paredes Pulse Ox Last 24 Hr 98.8 F-102.3 F 86-119 16-20 128-136/69-85 99-99 GENERAL: The patient is awake, alert, and fully oriented, in no acute distress. HEAD: Normal with no signs of trauma. EYES: PERRL, extraocular movements intact, sclera anicteric, conjunctiva clear. No ptosis. ENT: oropharynx clear without exudates, moist mucous membranes. LUNGS: Breath sounds equal, clear to auscultation bilaterally, no wheezes, no crackles, no accessory muscle use. HEART: Regular rate and rhythm, S1, S2 without murmur, rub or gallop. ABDOMEN: Soft, nontender, nondistended, normoactive bowel sounds, no guarding, no rebound, no hepatosplenomegaly, no masses. EXTREMITIES: 2+ pulses, warm, well-perfused, no edema. NEUROLOGICAL: Cranial nerves II through XII grossly intact. Normal speech, gait not observed. PSYCH: Normal mood, normal affect. SKIN: Warm, dry, normal turgor, no rashes or lesions noted Laboratory Results - last 24 hr 04/22/19 04/23/19 04/23/19 18:10 07:00 07:00 WBC 16.7 H RBC 4.52 Hgb 13.6 Hct 40.6 MCV 89.8 MCH 30.2 MCHC 33.6 RDW 12.5 Plt Count 215 MPV 8.4 Absolute Neuts (auto) 13.8 H Neutrophils % 82.9 H Lymphocytes % 8.1 D Monocytes % 7.8 Eosinophils % 0.8 D Basophils % 0.4 Nucleated RBC % 0 Sodium 138 Potassium 4.0 Chloride 104 Carbon Dioxide 26 Anion Gap 9 BUN 9.7 Creatinine 1.0 Est GFR (CKD-EPI)AfAm 114.11 Est GFR (CKD-EPI)NonAf 98.45 Random Glucose 73 L Calcium 8.8 Phosphorus 3.1 Magnesium 2.3 Total Bilirubin 1.2 H AST 23 ALT 26 Alkaline Phosphatase 85 Total Protein 7.5 Albumin 3.5 Group A Strep Rapid Negative Active Medications Generic Name Dose Route Start Last Admin Trade Name Freq PRN Reason Stop Dose Admin Acetaminophen 975 mg 04/22/19 14:28 04/23/19 10:36 Tylenol - PO 975 mg Q6H PRN Administration FEVER Ceftriaxone Sodium 2 gm/ 50 mls @ 100 mls/hr 04/22/19 10:00 04/23/19 10:28 Dextrose IVPB 100 mls/hr DAILY [facility] Administration Lamotrigine 200 mg 04/22/19 17:54 04/23/19 10:29 Lamictal - PO 200 mg DAILY [facility]UP[facility] Administration Levetiracetam 1,000 mg 04/22/19 22:00 04/23/19 10:28 Keppra Oral Solution - PO 1,000 mg BID RUPESH Administration Oxcarbazepine 150 mg 04/22/19 22:00 04/23/19 10:29 Trileptal - PO 150 mg BID [facility]UP[facility] Administration Polyethylene Glycol 17 gm 04/22/19 12:00 04/23/19 10:29 Miralax (For Daily Use) - PO 17 gm BID RUPESH Administration Witch Tiffanie/Glycerin 1 pad 04/23/19 12:20 Tucks Pads - TP PRN PRN PAIN ASSESSMENT/PLAN: Pt. is a 33 y.o. M w/ PMHx. of Epilepsy presents for signs and symptoms of UTI over the last day. UTI UA +: Nitrite +, LE+, WBC-177, Bilirubin, blood, and protein WBC trending down 16.7 today Bladder and Renal US: no post void residual, not retaining, no hydronephrosis, kidneys have normal size blood flow. Bcx neg x1d urine culture grew lactose fermenting Gram neg Bacilli pending sensitivity and speciation c/w Ceftriaxone GC/chlamydia sent Seizure disorder Oxcarb-150mg bid, Lamictal 200mg am and 300 at night, Keppra 1000mg BiD f/u anti-epileptic levels f/u EEG Neuro (Dr. Brothers) on board [place] Cr: 1.0 today unknown baseline, f/u Dr. Rodriguez for baseline Dark colored urine Renal US as above Constipation miralax DVT Ppx. Hep SQ TID FEN no standing IVF, encourage PO intake monitor lytes, replete as needed Na restricted diet Visit type - Emergency Visit Emergency Visit: Yes ED Registration Date: 04/21/19 Care time: The patient presented to the Emergency Department on the above date and was hospitalized for further evaluation of their emergent condition. - New Patient This patient is new to me today: Yes Date on this admission: 04/23/19 - Critical Care Critical Care patient: No - Discharge Referral Referred to [facility] Med P.C.: No ATTENDING PHYSICIAN STATEMENT I saw and evaluated the patient. I reviewed the resident's note and discussed the case with the resident. I agree with the resident's findings and plan as documented. SUBJECTIVE: OBJECTIVE: ASSESSMENT AND PLAN:
[2019-04-23] MEDS ORDERED: SODIUM CHLORIDE 1,000 ML IV SCH (14:30)
--- NOTE | 2019-04-23 16:49 | PN ---
Teaching Attending Note Name of Resident: Jazz Camara ATTENDING PHYSICIAN STATEMENT I saw and evaluated the patient. I reviewed the resident's note and discussed the case with the resident. I agree with the resident's findings and plan as documented. SUBJECTIVE: Patient is comfortable with no acute distress. no fever or chills, no seizure activity. OBJECTIVE: Vital Signs Temperature 99.1 F 04/23/19 15:00 Pulse Rate 93 H 04/23/19 15:00 Respiratory Rate 18 04/23/19 15:00 Blood Pressure 130/77 04/23/19 15:00 O2 Sat by Pulse Oximetry (%) 99 04/22/19 21:00 GENERAL: The patient is awake, alert, and fully oriented, in no acute distress. HEAD: Normal with no signs of trauma. EYES: PERRL, extraocular movements intact, sclera anicteric, conjunctiva clear. ENT: Ears normal, oropharynx clear without exudates, moist mucous membranes. NECK: Trachea midline, full range of motion, supple. LUNGS: Breath sounds equal, clear to auscultation bilaterally, no wheezes, no crackles, no accessory muscle use. HEART: Regular rate and rhythm, S1, S2 without murmur, rub or gallop. ABDOMEN: Soft, nontender, nondistended, normoactive bowel sounds, no guarding, no rebound, no hepatosplenomegaly, no masses. EXTREMITIES: 2+ pulses, warm, well-perfused, no edema. NEUROLOGICAL: Cranial nerves II through XII grossly intact. Normal speech, gait not observed. PSYCH: Normal mood, normal affect. SKIN: Warm, dry, normal turgor, no rashes or lesions noted WBC 16.7 K/mm3 (4.0-10.0) H 04/23/19 07:00 RBC 4.52 M/mm3 (4.00-5.60) 04/23/19 07:00 Hgb 13.6 GM/dL (11.7-16.9) 04/23/19 07:00 Hct 40.6 % (35.4-49) 04/23/19 07:00 MCV 89.8 fl (80-96) 04/23/19 07:00 MCHC 33.6 g/dl (32.0-35.9) 04/23/19 07:00 RDW 12.5 % (11.9-15.9) 04/23/19 07:00 Plt Count 215 K/MM3 (134-434) 04/23/19 07:00 MPV 8.4 fl (7.5-11.1) 04/23/19 07:00 CMP Sodium 138 mmol/L (136-145) 04/23/19 07:00 Potassium 4.0 mmol/L (3.5-5.1) 04/23/19 07:00 Chloride 104 mmol/L (98-107) 04/23/19 07:00 Carbon Dioxide 26 mmol/L (21-32) 04/23/19 07:00 Anion Gap 9 MMOL/L (8-16) 04/23/19 07:00 BUN 9.7 mg/dL (7-18) 04/23/19 07:00 Creatinine 1.0 mg/dL (0.55-1.3) 04/23/19 07:00 Random Glucose 73 mg/dL (74-106) L 04/23/19 07:00 Calcium 8.8 mg/dL (8.5-10.1) 04/23/19 07:00 Total Bilirubin 1.2 mg/dL (0.2-1) H 04/23/19 07:00 AST 23 U/L (15-37) 04/23/19 07:00 ALT 26 U/L (13-61) 04/23/19 07:00 Alkaline Phosphatase 85 U/L (45-117) 04/23/19 07:00 Total Protein 7.5 g/dl (6.4-8.2) 04/23/19 07:00 Albumin 3.5 g/dl (3.4-5.0) 04/23/19 07:00 CARDIAC ENZYMES Creatine Kinase 620 U/L (26-308) H 04/22/19 11:18 Current Medications Generic Name Dose Route Start Last Admin Trade Name Freq PRN Reason Stop Dose Admin Acetaminophen 975 mg 04/22/19 14:28 04/23/19 10:36 Tylenol - PO 975 mg Q6H PRN Administration FEVER Ceftriaxone Sodium 2 gm/ 50 mls @ 100 mls/hr 04/22/19 10:00 04/23/19 10:28 Dextrose IVPB 100 mls/hr DAILY [facility]UP[facility] Administration Sodium Chloride 1,000 mls @ 75 mls/hr 04/23/19 14:30 04/23/19 15:05 Normal Saline - IV 04/24/19 03:49 75 mls/hr ASDIR RUPESH Administration Lamotrigine 200 mg 04/22/19 17:54 04/23/19 10:29 Lamictal - PO 200 mg DAILY [facility] Administration Levetiracetam 1,000 mg 04/22/19 22:00 04/23/19 10:28 Keppra Oral Solution - PO 1,000 mg BID RUP[facility] Administration Oxcarbazepine 150 mg 04/22/19 22:00 04/23/19 10:29 Trileptal - PO 150 mg BID RUP[facility] Administration Polyethylene Glycol 17 gm 04/22/19 12:00 04/23/19 10:29 Miralax (For Daily Use) - PO 17 gm BID RUP[facility] Administration Witch Tiffanie/Glycerin 1 pad 04/23/19 12:20 04/23/19 15:09 Tucks Pads - TP 1 pad PRN PRN Administration PAIN Home Medications Medication Instructions Recorded levETIRAcetam [Keppra -] 500 mg PO BID 04/21/19 Microbiology 04/21/19 21:51 Urine - Urine Clean Catch Urine Culture - Preliminary Non Lactose Fermenting Gnb 04/22/19 03:15 Blood - Peripheral Venous Blood Culture - Preliminary NO GROWTH OBTAINED AFTER 24 HOURS, INCUBATION TO CONTINUE FOR 4 DAYS. 04/22/19 03:15 Blood - Peripheral Venous Blood Culture - Preliminary NO GROWTH OBTAINED AFTER 24 HOURS, INCUBATION TO CONTINUE FOR 4 DAYS. EKG shows sinus tachycardia but no ST-T wave changes Assessment and plan: Pt. is a 33 y.o. Male w/ PMHx. of Epilepsy presents to the ED for having urgency and frequency and is found to have UTI and and was admitted for having a seizure earlier today for a total of 4 seizures this month at home. #Sepsis due to uti, Culture and sensitivity IS PENDING, BLOOD CX PENDING on Rocephin 2gm IV , ID consult, will get GC/chlamydia pending #s/p Seizure - Consult neurology, Current doses [id number] bid, Lamictal 200mg am and 300 at night, Keppra 1000mg BiD-would resume current dose, discussed with Dr. Brothers # GAVIOTA - monitor, IVF continue # Constipation: on miralax # Obesity weight management DVT prophylaxis - Lovenox 40 mg SQ q 24 hours. Advance directives - Full code once we get the sensitivity ana discharge the patient.
--- NOTE | 2019-04-23 16:55 | EKG ---
Test Reason : Blood Pressure : / mmHG Vent. Rate : 101 BPM Atrial Rate : 101 BPM P-R Int : 148 ms QRS Dur : 098 ms QT Int : 350 ms P-R-T Axes : 058 017 030 degrees QTc Int : 453 ms SINUS TACHYCARDIA MINIMAL VOLTAGE CRITERIA FOR LVH, MAY BE NORMAL VARIANT BORDERLINE ECG NO PREVIOUS ECGS AVAILABLE Confirmed by JESSI GONZALEZ, KAL ([id number]) on 04/23/2019 4:54:48 PM Referred By: Confirmed By:KAL BOWEN MD
[2019-04-24] MEDS ORDERED: BENZOCAINE 28 GM HEMORRHOIDAL OINTMENT PR PRN (07:12)
[2019-04-24 07:53] LABS: BASO % 0.6 % (0-2.0); EOS % 1.6 % (0-4.5); HEMATOCRIT 36.5 % (35.4-49); MCH 31.1 pg (25.7-33.7); MCHC 35.5 g/dl (32.0-35.9); MEAN CELL VOLUME 87.4 fl (80-96); MEAN PLT VOLUME 8.3 fl (7.5-11.1); MONO % 12.6 % (3.8-10.2); NEUT % 72.2 % (42.8-82.8); PLATELET COUNT 237 K/MM3 (134-434); RBC 4.17 M/mm3 (4.00-5.60); RDW 12.2 % (11.9-15.9); WHITE BLOOD COUNT 5.9 K/mm3 (4.0-10.0)
[2019-04-24] MEDS: ACETAMINOPHEN 325 MG TABLET (FP) PO PRN (08:04)
[2019-04-24 08:07] LABS: BLOOD UREA NITROGEN 11.1 mg/dL (7-18); CALCIUM 8.4 mg/dL (8.5-10.1); POTASSIUM 3.9 mmol/L (3.5-5.1)
[2019-04-24] MEDS ORDERED: DEXTROSE 5%-WATER - 50 ML IVPB ONE (10:42)
[2019-04-24] MEDS ORDERED: PT OWN MED DRAWER 7, Y5N ONE ×3 (10:42→21:25)
[2019-04-24] MEDS: lamoTRIgine 100 MG TABLET (FP) PO SCH ×2 (10:45→21:35)
[2019-04-24] MEDS: levETIRAcetam 500 MG/5 ML ORAL SOLUTION (UNIT-DOSE CUPS) PO SCH ×2 (10:45→21:34)
[2019-04-24] MEDS: POLYETHYLENE GLYCOL 3350 119 GM BTL PO SCH ×2 (10:45→21:37)
[2019-04-24] MEDS: OXcarbazepine 150 MG TABLET (UD) PO SCH ×2 (10:46→21:35)
[2019-04-24] MEDS: CEFTRIAXONE 2 GM in DEXTROSE 5%-WATER - 50 ML IVPB SCH (10:47)
--- NOTE | 2019-04-24 12:02 | PN ---
Progress Note, Physician History of Present Illness: TEMP 103 THIS AM! OFFERS NO COMPLAINTS DENIES DYSURIA OOB IN CHAIR NON TOXIC APPEARING WBC IMPROVED- WNL BC (-) URINE C/S MORGANELLA RENAL SONO (-) - Current Medication List Current Medications: Active Medications Acetaminophen (Tylenol -) 975 mg PO Q6H PRN PRN Reason: FEVER Last Admin: 04/24/19 08:04 Dose: 975 mg Benzocaine (Americaine Ointment -) 1 applic FL PRN PRN PRN Reason: HEMORRHOIDS Ceftriaxone Sodium 2 gm/ (Dextrose) 50 mls @ 100 mls/hr IVPB DAILY [facility] Last Admin: 04/24/19 10:47 Dose: 100 mls/hr Lamotrigine (Lamictal -) 200 mg PO DAILY [facility] Last Admin: 04/24/19 10:45 Dose: 200 mg Levetiracetam (Keppra Oral Solution -) 1,000 mg PO BID [facility] Last Admin: 04/24/19 10:45 Dose: 1,000 mg Oxcarbazepine (Trileptal -) 150 mg PO BID [facility] Last Admin: 04/24/19 10:46 Dose: 150 mg Polyethylene Glycol (Miralax (For Daily Use) -) 17 gm PO BID [facility] Last Admin: 04/24/19 10:45 Dose: Not Given Witch Tiffanie/Glycerin (Tucks Pads -) 1 pad TP PRN PRN PRN Reason: PAIN Last Admin: 04/23/19 15:09 Dose: 1 pad - Objective Vital Signs: Vital Signs Temperature 101.6 F H 04/24/19 05:00 Pulse Rate 92 H 04/24/19 05:00 Respiratory Rate 18 04/24/19 05:00 Blood Pressure 133/76 04/24/19 05:00 O2 Sat by Pulse Oximetry (%) 97 04/23/19 21:00 Constitutional: Yes: No Distress Cardiovascular: Yes: Regular Rate and Rhythm, S1, S2 Respiratory: Yes: CTA Bilaterally Gastrointestinal: Yes: Normal Bowel Sounds, Soft. No: Tenderness Labs: CBC, BMP 04/24/19 06:35 04/24/19 06:00 Assessment/Plan RECURRENT FEVER UTI REPEAT BC SUBSTITUTE LEVAQUIN 750MG QD
--- NOTE | 2019-04-24 16:21 | PN ---
Physical Exam: SUBJECTIVE: Patient seen and examined. Pt had a couple of fever spikes 100.7F, 101.6F responsive to tylenol. pt endorsed some burning on urination but not as much as yesterday OBJECTIVE: Vital Signs Period Temp Pulse Resp BP Sys/Paredes Pulse Ox Last 24 Hr 98.1 F-101.6 F 80-104 18-20 99-143/52-93 97 GENERAL: The patient is awake, alert, and fully oriented, in no acute distress. HEAD: Normal with no signs of trauma. EYES: PERRL, extraocular movements intact, sclera anicteric, conjunctiva clear. No ptosis. ENT: oropharynx clear without exudates, moist mucous membranes. LUNGS: Breath sounds equal, clear to auscultation bilaterally, no wheezes, no crackles, no accessory muscle use. HEART: Regular rate and rhythm, S1, S2 without murmur, rub or gallop. ABDOMEN: Soft, nontender, nondistended, normoactive bowel sounds, no guarding, no rebound, no hepatosplenomegaly, no masses. EXTREMITIES: 2+ pulses, warm, well-perfused, no edema. NEUROLOGICAL: Cranial nerves II through XII grossly intact. Normal speech, gait not observed. PSYCH: Normal mood, normal affect. SKIN: Warm, dry, normal turgor, no rashes or lesions noted Laboratory Results - last 24 hr 04/22/19 04/24/19 04/24/19 03:15 06:00 06:35 WBC 5.9 RBC 4.17 Hgb 13.0 Hct 36.5 MCV 87.4 MCH 31.1 MCHC 35.5 RDW 12.2 Plt Count 237 MPV 8.3 Absolute Neuts (auto) 4.3 Neutrophils % 72.2 Lymphocytes % 13.0 D Monocytes % 12.6 H Eosinophils % 1.6 D Basophils % 0.6 Nucleated RBC % 0 Sodium 138 Potassium 3.9 Chloride 105 Carbon Dioxide 24 Anion Gap 9 BUN 11.1 Creatinine 1.0 Est GFR (CKD-EPI)AfAm 114.11 Est GFR (CKD-EPI)NonAf 98.45 Random Glucose 83 Calcium 8.4 L Oxcarbazepine 2 L Levetiracetam 11.6 Active Medications Generic Name Dose Route Start Last Admin Trade Name Freq PRN Reason Stop Dose Admin Acetaminophen 975 mg 04/22/19 14:28 04/24/19 08:04 Tylenol - PO 975 mg Q6H PRN Administration FEVER Benzocaine 1 applic 04/24/19 07:12 Americaine Ointment - SC PRN PRN HEMORRHOIDS Levofloxacin 750 mg in 150 mls @ 150 mls/hr 04/24/19 12:15 04/24/19 15:39 Levaquin 750 Mg Premixed Ivpb - IVPB 150 mls/hr DAILY RUPESH Administration Protocol Lamotrigine 200 mg 04/22/19 17:54 04/24/19 10:45 Lamictal - PO 200 mg DAILY RUPESH Administration Lamotrigine 300 mg 04/24/19 22:00 Lamictal - PO HS RUPESH Levetiracetam 1,000 mg 04/22/19 22:00 04/24/19 10:45 Keppra Oral Solution - PO 1,000 mg BID RUPESH Administration Oxcarbazepine 150 mg 04/22/19 22:00 04/24/19 10:46 Trileptal - PO 150 mg BID RUPESH Administration Polyethylene Glycol 17 gm 04/22/19 12:00 04/24/19 10:45 Miralax (For Daily Use) - PO Not Given BID RUPESH ASSESSMENT/PLAN: Pt. is a 33 y.o. M w/ PMHx. of Epilepsy presents for signs and symptoms of UTI over the last day. UTI Pt had 2 fever spikes WBC trending down 5.6 today Bcx neg x2d but repeat cultures sent due to fevers urine culture grew morganella morganii sensitive to levaquin Per ID patient switched to levaquin 750mg Seizure disorder Oxcarb-150mg bid, Lamictal 200mg am and 300 at night, Keppra 1000mg BiD anti-epileptic levels for oxcarb 2.0, keppra 11.6. lamictal pending f/u EEG Neuro (Dr. Brothers) on board GAVIOTA Cr: 1.0 today monitor Constipation miralax hemorrhoid cream DVT Ppx. Hep SQ TID FEN no standing IVF, encourage PO intake monitor lytes, replete as needed Na restricted diet Visit type - Emergency Visit Emergency Visit: Yes ED Registration Date: 04/21/19 Care time: The patient presented to the Emergency Department on the above date and was hospitalized for further evaluation of their emergent condition. - New Patient This patient is new to me today: No - Critical Care Critical Care patient: No - Discharge Referral Referred to [facility] Med P.C.: No ATTENDING PHYSICIAN STATEMENT I saw and evaluated the patient. I reviewed the resident's note and discussed the case with the resident. I agree with the resident's findings and plan as documented. SUBJECTIVE: OBJECTIVE: ASSESSMENT AND PLAN:
--- NOTE | 2019-04-24 16:51 | PN ---
Teaching Attending Note Name of Resident: Jazz Camara ATTENDING PHYSICIAN STATEMENT I saw and evaluated the patient. I reviewed the resident's note and discussed the case with the resident. I agree with the resident's findings and plan as documented. SUBJECTIVE: Patient is comfortable , had fever overnight 101.3 ,no further seizure OBJECTIVE: Vital Signs Temperature 98.1 F 04/24/19 15:00 Pulse Rate 95 H 04/24/19 15:00 Respiratory Rate 20 04/24/19 15:00 Blood Pressure 116/72 04/24/19 15:00 O2 Sat by Pulse Oximetry (%) 97 04/23/19 21:00 GENERAL: The patient is awake, alert, and fully oriented, in no acute distress. HEAD: Normal with no signs of trauma. EYES: PERRL, extraocular movements intact, sclera anicteric, conjunctiva clear. ENT: Ears normal, oropharynx clear without exudates, moist mucous membranes. NECK: Trachea midline, full range of motion, supple. LUNGS: Breath sounds equal, clear to auscultation bilaterally, no wheezes, no crackles, no accessory muscle use. HEART: Regular rate and rhythm, S1, S2 without murmur, rub or gallop. ABDOMEN: Soft, nontender, nondistended, normoactive bowel sounds, no guarding, no rebound, no hepatosplenomegaly, no masses. EXTREMITIES: 2+ pulses, warm, well-perfused, no edema. NEUROLOGICAL: Cranial nerves II through XII grossly intact. Normal speech, gait not observed. PSYCH: Normal mood, normal affect. SKIN: Warm, dry, normal turgor, no rashes or lesions noted CBCD WBC 5.9 K/mm3 (4.0-10.0) 04/24/19 06:35 RBC 4.17 M/mm3 (4.00-5.60) 04/24/19 06:35 Hgb 13.0 GM/dL (11.7-16.9) 04/24/19 06:35 Hct 36.5 % (35.4-49) 04/24/19 06:35 MCV 87.4 fl (80-96) 04/24/19 06:35 MCHC 35.5 g/dl (32.0-35.9) 04/24/19 06:35 RDW 12.2 % (11.9-15.9) 04/24/19 06:35 Plt Count 237 K/MM3 (134-434) 04/24/19 06:35 MPV 8.3 fl (7.5-11.1) 04/24/19 06:35 CMP Sodium 138 mmol/L (136-145) 04/24/19 06:00 Potassium 3.9 mmol/L (3.5-5.1) 04/24/19 06:00 Chloride 105 mmol/L (98-107) 04/24/19 06:00 Carbon Dioxide 24 mmol/L (21-32) 04/24/19 06:00 Anion Gap 9 MMOL/L (8-16) 04/24/19 06:00 BUN 11.1 mg/dL (7-18) 04/24/19 06:00 Creatinine 1.0 mg/dL (0.55-1.3) 04/24/19 06:00 Random Glucose 83 mg/dL (74-106) 04/24/19 06:00 Calcium 8.4 mg/dL (8.5-10.1) L 04/24/19 06:00 Total Bilirubin 1.2 mg/dL (0.2-1) H 04/23/19 07:00 AST 23 U/L (15-37) 04/23/19 07:00 ALT 26 U/L (13-61) 04/23/19 07:00 Alkaline Phosphatase 85 U/L (45-117) 04/23/19 07:00 Total Protein 7.5 g/dl (6.4-8.2) 04/23/19 07:00 Albumin 3.5 g/dl (3.4-5.0) 04/23/19 07:00 CARDIAC ENZYMES Creatine Kinase 620 U/L (26-308) H 04/22/19 11:18 Current Medications Generic Name Dose Route Start Last Admin Trade Name Freq PRN Reason Stop Dose Admin Acetaminophen 975 mg 04/22/19 14:28 04/24/19 08:04 Tylenol - PO 975 mg Q6H PRN Administration FEVER Benzocaine 1 applic 04/24/19 07:12 Americaine Ointment - MA PRN PRN HEMORRHOIDS Levofloxacin 750 mg in 150 mls @ 150 mls/hr 04/24/19 12:15 04/24/19 15:39 Levaquin 750 Mg Premixed Ivpb - IVPB 150 mls/hr DAILY RUPESH Administration Protocol Lamotrigine 200 mg 04/22/19 17:54 04/24/19 10:45 Lamictal - PO 200 mg DAILY RUPESH Administration Lamotrigine 300 mg 04/24/19 22:00 Lamictal - PO HS [facility] Levetiracetam 1,000 mg 04/22/19 22:00 04/24/19 10:45 Keppra Oral Solution - PO 1,000 mg BID RUPESH Administration Oxcarbazepine 150 mg 04/22/19 22:00 04/24/19 10:46 Trileptal - PO 150 mg BID [facility] Administration Polyethylene Glycol 17 gm 04/22/19 12:00 04/24/19 10:45 Miralax (For Daily Use) - PO Not Given BID [facility] Home Medications Medication Instructions Recorded levETIRAcetam [Keppra -] 1,000 mg PO BID 04/21/19 Lamotrigine 200 mg PO AM 04/24/19 Lamotrigine 300 mg PO HS 04/24/19 Oxcarbazepine [Trileptal] 150 mg PO BID 04/24/19 Microbiology 04/22/19 21:54 Throat Throat Culture - Preliminary Staphylococcus Latex Coag Pos 04/21/19 21:51 Urine - Urine Clean Catch Urine Culture - Final Morganella Morganii 04/22/19 03:15 Blood - Peripheral Venous Blood Culture - Preliminary NO GROWTH OBTAINED AFTER 48 HOURS, INCUBATION TO CONTINUE FOR 3 DAYS. 04/22/19 03:15 Blood - Peripheral Venous Blood Culture - Preliminary NO GROWTH OBTAINED AFTER 48 HOURS, INCUBATION TO CONTINUE FOR 3 DAYS. EKG shows sinus tachycardia but no ST-T wave changes Assessment and plan: Pt. is a 33 y.o. Male w/ PMHx. of Epilepsy presents to the ED for having urgency and frequency and is found to have UTI and and was admitted for having a seizure earlier today for a total of 4 seizures this month at home. #s/p Sepsis due to uti, Culture and sensitivity as above sensitive to rocephin , since patient had fever overnight , need to monitor for 24h for afebrile state on Rocephin 2gm IV continue , ID consult, will get GC/chlamydia pending #s/p Seizure - Consult neurology, Current doses [id number] bid, Lamictal 200mg am and 300 at night, Keppra 1000mg BiD-would resume current dose, discussed with Dr. Brothers # GAVIOTA - monitor, IVF continue # Constipation: on miralax # Obesity weight management DVT prophylaxis - Lovenox 40 mg SQ q 24 hours. Advance directives - Full code once patient is afebrile, can be discharged on oral antibiotics , please check with ID . follow th gc/chlamydia cx
[2019-04-25 06:42] LABS: BASO % 0.5 % (0-2.0); EOS % 1.9 % (0-4.5); HEMATOCRIT 38.4 % (35.4-49); HEMOGLOBIN 13.4 GM/dL (11.7-16.9); LYMPH % 24.5 % (8-40); MCH 30.6 pg (25.7-33.7); MCHC 34.9 g/dl (32.0-35.9); MEAN CELL VOLUME 87.7 fl (80-96); MEAN PLT VOLUME 7.6 fl (7.5-11.1); MONO % 21.1 % (3.8-10.2); PLATELET COUNT 261 K/MM3 (134-434); RBC 4.37 M/mm3 (4.00-5.60); RDW 12.3 % (11.9-15.9); WHITE BLOOD COUNT 5.8 K/mm3 (4.0-10.0)
[2019-04-25] MEDS ORDERED: PT OWN MED DRAWER 7, Y5N ONE ×2 (10:07→21:51)
[2019-04-25] MEDS: lamoTRIgine 100 MG TABLET (FP) PO SCH ×2 (10:09→21:56)
[2019-04-25] MEDS: levETIRAcetam 500 MG/5 ML ORAL SOLUTION (UNIT-DOSE CUPS) PO SCH ×2 (10:09→21:56)
[2019-04-25] MEDS: POLYETHYLENE GLYCOL 3350 119 GM BTL PO SCH ×2 (10:10→21:55)
[2019-04-25] MEDS: OXcarbazepine 150 MG TABLET (UD) PO SCH ×2 (10:10→21:56)
[2019-04-25 10:53] LABS: ANISOCYTOSIS 0; MACROCYTOSIS 0; PLATELET ESTIMATE NORMAL
--- NOTE | 2019-04-25 12:37 | PN ---
Teaching Attending Note Name of Resident: Jazz Camara ATTENDING PHYSICIAN STATEMENT I saw and evaluated the patient. I reviewed the resident's note and discussed the case with the resident. I agree with the resident's findings and plan as documented. SUBJECTIVE: no fever or chills. No NORTON . no events over night . no abd pain or dysuria OBJECTIVE: NAD , awake , and alert Cv : RRR, no mRG Lungs: CTAB Ext : no edema or erythema Abd: soft, NT, ND, NL BS ASSESSMENT AND PLAN: 33 y/o man with h/o epilepsy who presented with seizures and was found to have UTI 1- Sepsis due to complicated UTI: sepsis resolved, and sx improved - cont levaquin. no seizures since yesterday while on it. will d/w ID - No fever since yesterday am. blood cx repeated yesterday, negative to date - urine cx reviewed - refer to uro as out pt 2- Seizure disorder: no recurrent episodes. episodes on day of admission could be due to the sepsis - oxcarbazepine level is low. patient reports compliance with meds - will ask neuro if any changes in meds ( oxcarbazepine ) should be made - cont keppra, , lamictal, and oxcarbazepine for now 3- DVT px: add heparin sq
--- NOTE | 2019-04-25 13:51 | PN ---
Physical Exam: SUBJECTIVE: Patient seen and examined. No fever spikes, dysuria or urgency overnight. OBJECTIVE: Vital Signs Period Temp Pulse Resp BP Sys/Paredes Pulse Ox Last 24 Hr 98.1 F-99.5 F 80-95 18-20 104-134/66-84 97 GENERAL: The patient is awake, alert, and fully oriented, in no acute distress. HEAD: Normal with no signs of trauma. EYES: PERRL, extraocular movements intact, sclera anicteric, conjunctiva clear. No ptosis. ENT: oropharynx clear without exudates, moist mucous membranes. LUNGS: Breath sounds equal, clear to auscultation bilaterally, no wheezes, no crackles, no accessory muscle use. HEART: Regular rate and rhythm, S1, S2 without murmur, rub or gallop. ABDOMEN: Soft, nontender, nondistended, normoactive bowel sounds, no guarding, no rebound, no hepatosplenomegaly, no masses. EXTREMITIES: 2+ pulses, warm, well-perfused, no edema. PSYCH: Normal mood, normal affect. SKIN: Warm, dry, normal turgor, no rashes or lesions noted Laboratory Results - last 24 hr 04/25/19 04/25/19 05:30 05:35 WBC 5.8 RBC 4.37 Hgb 13.4 Hct 38.4 MCV 87.7 MCH 30.6 MCHC 34.9 RDW 12.3 Plt Count 261 MPV 7.6 Absolute Neuts (auto) 3.0 Neutrophils % 52.0 D Neutrophils % (Manual) 62.3 D Band Neutrophils % 0.0 Lymphocytes % 24.5 D Lymphocytes % (Manual) 15.3 Monocytes % 21.1 H Monocytes % (Manual) 17 H D Eosinophils % 1.9 Eosinophils % (Manual) 1.0 Basophils % 0.5 Basophils % (Manual) 0.0 Myelocytes % (Man) 1 Promyelocytes % (Man) 0 Blast Cells % (Manual) 0 Nucleated RBC % 0 Metamyelocytes 1 Hypochromia 0 Platelet Estimate Normal Polychromasia 0 Poikilocytosis 0 Anisocytosis 0 Microcytosis 0 Macrocytosis 0 Total Bilirubin 0.4 Active Medications Generic Name Dose Route Start Last Admin Trade Name Freq PRN Reason Stop Dose Admin Acetaminophen 975 mg 04/22/19 14:28 04/24/19 08:04 Tylenol - PO 975 mg Q6H PRN Administration FEVER Benzocaine 1 applic 04/24/19 07:12 Americaine Ointment - DE PRN PRN HEMORRHOIDS Heparin Sodium (Porcine) 5,000 unit 04/25/19 14:00 Heparin - SQ TID RUPESH Levofloxacin 750 mg in 150 mls @ 150 mls/hr 04/24/19 12:15 04/25/19 10:09 Levaquin 750 Mg Premixed Ivpb - IVPB 150 mls/hr DAILY RUPESH Administration Protocol Lamotrigine 200 mg 04/22/19 17:54 04/25/19 10:09 Lamictal - PO 200 mg DAILY RUPESH Administration Lamotrigine 300 mg 04/24/19 22:00 04/24/19 21:35 Lamictal - PO 300 mg HS RUPESH Administration Levetiracetam 1,000 mg 04/22/19 22:00 04/25/19 10:09 Keppra Oral Solution - PO 1,000 mg BID RUPESH Administration Oxcarbazepine 150 mg 04/22/19 22:00 04/25/19 10:10 Trileptal - PO 150 mg BID RUPESH Administration Polyethylene Glycol 17 gm 04/22/19 12:00 04/25/19 10:10 Miralax (For Daily Use) - PO Not Given BID [facility] ASSESSMENT/PLAN: Pt. is a 33 y.o. M w/ PMHx. of Epilepsy presents for signs and symptoms of UTI over the last day. UTI Pt afebrile WBC normal 5.8 repeat cultures due to fever spikes pending urine culture grew morganella morganii sensitive to levaquin Per ID patient switched to levaquin 750mg If spikes a fever again, will get renal U/S Uro o/p follow up referral on D/C Seizure disorder Oxcarb-150mg bid, Lamictal 200mg am and 300 at night, Keppra 1000mg BiD anti-epileptic levels for oxcarb 2.0, keppra 11.6. lamictal pending f/u EEG as outpatient Messaged Dr Brothers about Oxcarb levels. increase the dose ? GAVIOTA stable monitor Constipation miralax hemorrhoid cream DVT Ppx. Hep SQ TID FEN no standing IVF, encourage PO intake monitor lytes, replete as needed Na restricted diet Visit type - Emergency Visit Emergency Visit: Yes ED Registration Date: 04/21/19 Care time: The patient presented to the Emergency Department on the above date and was hospitalized for further evaluation of their emergent condition. - New Patient This patient is new to me today: No - Critical Care Critical Care patient: No - Discharge Referral Referred to [facility] Med P.C.: No ATTENDING PHYSICIAN STATEMENT I saw and evaluated the patient. I reviewed the resident's note and discussed the case with the resident. I agree with the resident's findings and plan as documented. SUBJECTIVE: OBJECTIVE: ASSESSMENT AND PLAN:
[2019-04-25] MEDS: HEPARIN NA (PORCINE) 5,000 UNITS/ML 1ML VIAL SQ SCH ×2 (15:03→21:55)
--- NOTE | 2019-04-25 20:41 | PN ---
Progress Note, Physician History of Present Illness: AWAKE, ALERT, AMBULATORY OFFERS NO COMPLAINTS TEMPS DOWN DENIES DYSURIA NON TOXIC APPEARING WBC IMPROVED- WNL BC (-) URINE C/S MORGANELLA RENAL SONO (-) - Current Medication List Current Medications: Active Medications Acetaminophen (Tylenol -) 975 mg PO Q6H PRN PRN Reason: FEVER Last Admin: 04/24/19 08:04 Dose: 975 mg Benzocaine (Americaine Ointment -) 1 applic ND PRN PRN PRN Reason: HEMORRHOIDS Heparin Sodium (Porcine) (Heparin -) 5,000 unit SQ TID [facility] Last Admin: 04/25/19 15:03 Dose: 5,000 unit Levofloxacin (Levaquin 750 Mg Premixed Ivpb -) 750 mg in 150 mls @ 150 mls/hr IVPB DAILY [facility]; Protocol Last Admin: 04/25/19 10:09 Dose: 150 mls/hr Lamotrigine (Lamictal -) 200 mg PO DAILY [facility] Last Admin: 04/25/19 10:09 Dose: 200 mg Lamotrigine (Lamictal -) 300 mg PO HS [facility] Last Admin: 04/24/19 21:35 Dose: 300 mg Levetiracetam (Keppra Oral Solution -) 1,000 mg PO BID [facility] Last Admin: 04/25/19 10:09 Dose: 1,000 mg Oxcarbazepine (Trileptal -) 150 mg PO BID [facility] Last Admin: 04/25/19 10:10 Dose: 150 mg Polyethylene Glycol (Miralax (For Daily Use) -) 17 gm PO BID [facility] Last Admin: 04/25/19 10:10 Dose: Not Given - Objective Vital Signs: Vital Signs Temperature 98.5 F 04/25/19 16:25 Pulse Rate 78 04/25/19 16:25 Respiratory Rate 20 04/25/19 16:25 Blood Pressure 138/98 04/25/19 16:25 O2 Sat by Pulse Oximetry (%) 97 04/24/19 21:00 Constitutional: Yes: No Distress Eyes: Yes: Conjunctiva Clear Cardiovascular: Yes: Regular Rate and Rhythm, S1, S2 Respiratory: Yes: CTA Bilaterally Gastrointestinal: Yes: Normal Bowel Sounds, Soft Edema: No Labs: CBC, BMP 04/25/19 05:30 04/24/19 06:00 Assessment/Plan FEVER- IMPROVED UTI CONTINUE LEVAQUIN 750MG QD
[2019-04-25] MEDS ORDERED: ACETAMINOPHEN 325 MG TABLET (FP) PO ONE (21:19)
[2019-04-26] MEDS ORDERED: SODIUM CHLORIDE NASAL SPRAY 44 ML BOTTLE NS PRN (02:08)
[2019-04-26] MEDS ORDERED: PT OWN MED DRAWER 7, Y5N ONE ×2 (02:48→09:27)
[2019-04-26] MEDS: HEPARIN NA (PORCINE) 5,000 UNITS/ML 1ML VIAL SQ SCH ×2 (06:02→13:53)
[2019-04-26 06:50] LABS: BASO % 0.5 % (0-2.0); EOS % 4.1 % (0-4.5); HEMATOCRIT 38.4 % (35.4-49); HEMOGLOBIN 13.5 GM/dL (11.7-16.9); LYMPH % 20.1 % (8-40); MCH 30.7 pg (25.7-33.7); MEAN CELL VOLUME 87.5 fl (80-96); MEAN PLT VOLUME 7.4 fl (7.5-11.1); MONO % 16.1 % (3.8-10.2); NEUT % 59.2 % (42.8-82.8); PLATELET COUNT 262 K/MM3 (134-434); RBC 4.39 M/mm3 (4.00-5.60); RDW 12.3 % (11.9-15.9); WHITE BLOOD COUNT 7.5 K/mm3 (4.0-10.0)
[2019-04-26 09:36] VITALS: TEMP 98.4
[2019-04-26] MEDS: levETIRAcetam 500 MG/5 ML ORAL SOLUTION (UNIT-DOSE CUPS) PO SCH (09:43)
[2019-04-26] MEDS: OXcarbazepine 150 MG TABLET (UD) PO SCH (09:43)
[2019-04-26] MEDS: lamoTRIgine 100 MG TABLET (FP) PO SCH (09:43)
[2019-04-26] MEDS: POLYETHYLENE GLYCOL 3350 119 GM BTL PO SCH (09:46)
[2019-04-26 10:09] LABS: ANISOCYTOSIS 0; HELMET CELLS 0; HOWELL-JOLLY BODIES 0; MACROCYTOSIS 0; OVALOCYTE 0; PLATELET ESTIMATE NORMAL; ROULEAU 0; SICKELED CELLS 0; TARGET CELLS 0; TEAR DROP CELLS 0; TOXIC GRANULATION 0
--- NOTE | 2019-04-26 14:02 | PN ---
Teaching Attending Note Name of Resident: Jazz Camara ATTENDING PHYSICIAN STATEMENT I saw and evaluated the patient. I reviewed the resident's note and discussed the case with the resident. I agree with the resident's findings and plan as documented. SUBJECTIVE: no pain , no fever or chills. no NORTON . no abd pain or fever or chills. OBJECTIVE: NAD , awake , and alert Cv : RRR, no mRG Lungs: CTAB Ext : no edema or erythema ASSESSMENT AND PLAN: 33 y/o man with h/o epilepsy who presented with seizures and was found to have UTI 1- Sepsis due to complicated UTI: sepsis resolved, and sx improved - cont levaquin for 7 more days . d/w ID - blood cx neg to date x 48hr - refer to uro as out pt 2- Seizure disorder: - oxcarbazepine level is low.d/w Dr. Heart who advised increasing dose to 300 BId and cont to titrate up as outpt - cont keppra and lamictal ( level pending) - follow up with his own epilepsy doc as outpt Dc home
[2019-04-26 15:40] VITALS: BP 117/67; PULSE 88
--- NOTE | 2019-04-26 17:19 | DS ---
Physical Exam: SUBJECTIVE: Patient seen and examined.No fever spikes, dysuria or urgency overnight. No seizure activity. OBJECTIVE: Vital Signs Period Temp Pulse Resp BP Sys/Paredes Pulse Ox Last 24 Hr 97.8 F-98.9 F 76-89 20-22 108-134/55-82 98-98 PHYSICAL EXAM GENERAL: The patient is awake, alert, and fully oriented, in no acute distress. HEAD: Normal with no signs of trauma. EYES: PERRL, extraocular movements intact, sclera anicteric, conjunctiva clear. No ptosis. ENT: oropharynx clear without exudates, moist mucous membranes. LUNGS: Breath sounds equal, clear to auscultation bilaterally, no wheezes, no crackles, no accessory muscle use. HEART: Regular rate and rhythm, S1, S2 without murmur, rub or gallop. ABDOMEN: Soft, nontender, nondistended, normoactive bowel sounds, no guarding, no rebound, no hepatosplenomegaly, no masses. EXTREMITIES: 2+ pulses, warm, well-perfused, no edema. PSYCH: Normal mood, normal affect. SKIN: Warm, dry, normal turgor, no rashes or lesions noted LABS Laboratory Results - last 24 hr 04/26/19 06:18 WBC 7.5 RBC 4.39 Hgb 13.5 Hct 38.4 MCV 87.5 MCH 30.7 MCHC 35.0 RDW 12.3 Plt Count 262 MPV 7.4 L Absolute Neuts (auto) 4.4 Neutrophils % 59.2 Neutrophils % (Manual) 57.4 Band Neutrophils % 2.0 Lymphocytes % 20.1 Lymphocytes % (Manual) 19.8 D Monocytes % 16.1 H Monocytes % (Manual) 14 H Eosinophils % 4.1 D Eosinophils % (Manual) 4.9 H D Basophils % 0.5 Basophils % (Manual) 1.0 D Myelocytes % (Man) 0 D Promyelocytes % (Man) 0 Blast Cells % (Manual) 0 Nucleated RBC % 0 Metamyelocytes 0 D Hypochromia 0 Toxic Granulation 0 Dohle Bodies 0 Platelet Estimate Normal Polychromasia 0 Poikilocytosis 0 Basophilic Stippling 0 Anisocytosis 0 Microcytosis 0 Macrocytosis 0 Spherocytes 0 Sickle Cells 0 Target Cells 0 Tear Drop Cells 0 Ovalocytes 0 Stomatocytes 0 Helmet Cells 0 Roberts-Fruita Bodies 0 [place] Rings 0 Hanson Cells 0 Acanthocytes (Spur) 0 Rouleaux 0 Fragmented RBCs 0 Schistocytes 0 HOSPITAL COURSE: Date of Admission:04/21/19 Pt. is a 33 y.o. M w/ PMHx of Epilepsy presents for signs and symptoms of UTI over the last day and increased seizure activities as recent.Pt had a seizure episode while in ED. UA was positive for infection and culture grew morganella morganii. Prior to speciation and sensitivity, pt was treated with ceftriaxone then switched to levaquin 750 mg daily based on sensitivity results (discharged with 7 doses for the next 7 days to complete treatment.Due to complicated UTI, Renal U/S was ordered and found to be unremarkable. As per increased seizure activity,Neuro was consulted and seizure meds levels ordered. Seizure might have been due to the UTI but also due to low levels of oxcarb. per neuro rec, pt oxcarb was increased to 300mg BID and advised patient to follow up with his epileptologist for further evaluation. Patient was inquisitive as to the source of his UTI so pt was referred to o/p urology for futher assessment. Plan discussed with patient and pt agreed on discharge and follow up plans. Date of Discharge: 04/26/19 Minutes to complete discharge: 35 Discharge Summary Problems reviewed: Yes Reason For Visit: ACUTE KIDNEY INJURY,URINARY TRACT INFECTION Condition: Improved - Instructions Diet, Activity, Other Instructions: You were admitted for a urinary tract infection. You had a seizure while in in the hospital. We treated you with antibiotics and monitored you for further seizure activity. We imaged your kidneys and did not find anything immediately wrong. We started you on a new antibiotic, Levaquin 750mg ONCE a Day for 7 days. Please take your first dose 04/27/19 at 9AM. We have increased your Oxcabazepine (Tileptal) to 300mg TWICE a Day. Please take as followed. Please resume your medications as prescribed. Please follow up with your Primary Care Doctor within 1 week, if you do not have one we have provided one for you, Dr. López. Please follow up with your Epilepsy doctor, Dr. Cage, within 1 week to discuss your medications to prevent seizures, especially the new adjustment. Please follow up with Urologist, Dr. Jones, within 1 week to discuss finding out why you developed a urinary tract infection. Please return to the ED if you are having fevers, chills, seizures, pain on urination or any concerning symptoms. Referrals: Marcus López MD [Staff Physician] - 1 Week Oumar Alejandro MD [Staff Physician] - 1 Week ON STAFF,NOT [Non Staff, Medical] - 1 Week (Dr. Cage ) Disposition: HOME - Home Medications Comprehensive Discharge Medication List: Ambulatory Orders levETIRAcetam [Keppra -] 1,000 mg PO BID 04/21/19 Lamotrigine 200 mg PO AM 04/24/19 Lamotrigine 300 mg PO HS 04/24/19 Oxcarbazepine [Trileptal] 300 mg PO BID #60 tablet 04/26/19 levoFLOXacin [Levaquin] 750 mg PO DAILY 7 Days #7 tab 04/26/19 Problem List - Problems (1) GAVIOTA (acute kidney injury) Code(s): N17.9 - ACUTE KIDNEY FAILURE, UNSPECIFIED (2) Elevated CK Code(s): R74.8 - ABNORMAL LEVELS OF OTHER SERUM ENZYMES (3) Seizure Code(s): R56.9 - UNSPECIFIED CONVULSIONS (4) UTI (urinary tract infection) Code(s): N39.0 - URINARY TRACT INFECTION, SITE NOT SPECIFIED Qualifiers: Urinary tract infection type: acute cystitis Hematuria presence: with hematuria Qualified Code(s): N30.01 - Acute cystitis with hematuria This patient is new to me today: No Emergency Visit: Yes ED Registration Date: 04/21/19 Care time: The patient presented to the Emergency Department on the above date and was hospitalized for further evaluation of their emergent condition. Critical Care patient: No - Discharge Referral Referred to [facility] Med P.C.: No ATTENDING PHYSICIAN STATEMENT I saw and evaluated the patient. I reviewed the resident's note and discussed the case with the resident. I agree with the resident's findings and plan as documented. SUBJECTIVE: OBJECTIVE: ASSESSMENT AND PLAN:
[2019-04-26] MEDS ORDERED: MELATONIN 1 MG TABLET PO SCH (22:00)
== END 2019-04-26 15:47 | disposition home or self-care (01) | DRG 720 ==
LOC: JER 20:41 → JERBED 23:16 → J8W 04-22 07:35
PROVIDERS: ADMIT Internal Medicine; ATTEND Internal Medicine
DX: A41.59 Other Gram-negative sepsis (principal); N17.9 Acute kidney failure, unspecified; M62.82 Rhabdomyolysis; N39.0 Urinary tract infection, site not specified; B96.89 Other specified bacterial agents as the cause of diseases classified elsewhere; G40.802 Other epilepsy, not intractable, without status epilepticus; E66.9 Obesity, unspecified; Z68.32 Body mass index [BMI] 32.0-32.9, adult; K59.09 Other constipation; D72.829 Elevated white blood cell count, unspecified; R50.9 Fever, unspecified; R74.8 Abnormal levels of other serum enzymes; B96.4 Proteus (mirabilis) (morganii) as the cause of diseases classified elsewhere; R00.0 Tachycardia, unspecified
CPT/HCPCS: 36415; 76775-TC; 80048; 80053; 80175; 80177; 80183; 81003; 82247; 82550; 82553; 83605; 83735; 84100; 85025; 87040; 87070; 87086; 87186; 87880; 93005; 93010; 95816; 99282-25; J0131; J1644; J7030